=== PATIENT | male | born 1980 | race Native Hawaiian/Other Pacific Islander ===

== ENCOUNTER 2020-04-09 07:31 | Outpatient (CLI) | payer OTHER ==
--- NOTE | 2020-04-09 16:49 | MRI Report ---
PROCEDURE: Ankle LT W/O INDICATIONS: LEFT ANKLE PAIN TECHNIQUE: Noncontrast sagittal T1 spin echo and T2 fast spin echo with fat saturation, axial proton density fas t spin echo and T2 fast spin echo with fat saturation, coronal T1 spin echo and T2 fast spin echo wit h fat saturation through the ankle/hindfoot. COMPARISON: None. FINDINGS: Image quality: Excellent. Bones and joints: No bone marrow contusions or fractures. No hindfoot coalitions. No osteochondral injuries of the talar dome. No pathologic joint effusions. Medial structures: The posterior tibialis, flexor digitorum longus, and flexor hallucis longus tendo ns are intact. The posterior tibial neurovascular bundle appears normal within the tarsal tunnel, wi thout extrinsic mass effect. The deep layer (anterior and posterior tibiotalar ligaments) and superf icial layer (tibionavicular, tibiospring, and tibiocalcaneal ligaments) of the deltoid ligament appea r normal. The spring ligament components (superomedial calcaneonavicular, medioplantar oblique calca neonavicular, and inferoplantar longitudinal ligaments) are intact. Lateral structures: The anterior talofibular, calcaneofibular, and posterior talofibular ligaments a ppear intact. More superiorly, the anterior and posterior tibiofibular ligaments appear normal, as i s the intermalleolar ligament. The tibiofibular syndesmosis is normal in width at 2 mm or less. The peroneus longus and brevis tendons demonstrate normal location and morphology. Adjacent bony perone al tubercle and retrotrochlear prominence are normal in size. The sinus tarsi demonstrates normal fa tty signal, without edema, fibrosis, or cyst formation. Visualized sinus tarsi components (cervical ligament, interosseous talocalcaneal ligament, roots of the inferior extensor retinaculum) appear nor mal. Anterior structures: The tibialis anterior, extensor hallucis longus, and extensor digitorum longus tendons appear intact. Posterior and plantar structures: There is full-thickness rupture involving Achilles tendon approxima tely 7.9 cm from its insertion of posterior calcaneus with retraction of torn tendon fibers and up to 4 cm fluid-filled gap between 2 ends of the torn tendon fibers. Medial and lateral bands of the plan tar fascia are of normal thickness. No abductor digiti quinti muscle atrophy to suggest Ledezma neuro jean. IMPRESSION: 1. Full-thickness rupture involving Achilles tendon approximately 7.9 cm from its insertion on gold beater ior calcaneus with retraction of torn tendon fibers and up to 4 mm fluid-filled gap at the site of ru pture. 2. Extensor, flexor, and peroneus tendons are intact. 3. Medial and lateral ankle ligaments are intact. 4. No marrow edema. No fracture or dislocation. Reviewed by: Dayen Lynn MD on 04/09/2020 4:48 PM PST Approved by: Dayne Lynn MD on 04/09/2020 4:48 PM PST Station ID: [id number]
== END 2020-04-09 07:32 | disposition home or self-care (01) ==
LOC: DI 07:31
PROVIDERS: ATTEND Physician Assistant
DX: S86.012A Strain of left Achilles tendon, initial encounter (principal)

== ENCOUNTER 2021-03-06 11:26 | Emergency (ER) | payer OTHER ==
[2021-03-06] MEDS ORDERED: KETOROLAC 60 MG/2 ML VIAL IM STA (12:03)
[2021-03-06] MEDS ORDERED: DEXAMETHASONE 10 MG/ML VIAL PO STA (12:03)
[2021-03-06] MEDS ORDERED: CHERRY SYRUP 10 ML UDC PO ONE (12:03)
--- NOTE | 2021-03-06 12:30 | ED Physician Documentation ---
PD HPI BACK PAIN - Stated complaint Stated Complaint: BACK PX - Chief complaint Chief Complaint: Back Pain - History obtained from History obtained from: Patient - History of Present Illness Timing - onset: How many days ago (3) Timing - duration: Days (3) Timing - details: Gradual onset, Still present Location: Lower, Right Quality: Pain, Spasm, Sharp, Similar to prior episodes Associated symptoms: No: Fever, Weakness, Numbness, Incontinent of urine, Unable to urinate, Hematuria, Incontinent of stool Improves with: Rest Worsened by: Movement Contributing factors: Other (hiking several days prior to onset) Similar symptoms before: No diagnosis Recently seen: Not recently seen - Additional information Additional information: 40 y/o male with acute low back pain to the right lower paraspinous muscles. Believes loading injury may be related to some hiking done last week. has been using heat with relief but worsening pain. Review of Systems Constitutional: denies: Fever Nose: denies: Congestion Throat: denies: Sore throat Respiratory: denies: Cough GI: denies: Abdominal Pain, Vomiting, Constipation, Diarrhea : denies: Dysuria, Frequency Skin: denies: Rash Musculoskeletal: reports: Back pain. denies: Neck pain, Extremity pain Neurologic: denies: Generalized weakness, Focal weakness, Numbness PD PAST MEDICAL HISTORY - Past Medical History Other Past Medical History: left achilles fx 6 months ago - Past Surgical History Past Surgical History: No - Present Medications Home Medications: Ambulatory Orders Medication Instructions Recorded Confirmed Cyclobenzaprine [Flexeril] 10 mg PO TID PRN #20 tablet 03/06/21 HYDROcod/ACETAM 5/325 [[place] 5/325] 1 - 2 tablet PO Q6H PRN #14 tablet 03/06/21 - Allergies Allergies/Adverse Reactions: Allergies Allergy/AdvReac Type Severity Reaction Status Date / Time No Known Drug Allergies Allergy Verified 03/06/21 11:34 - Social History Does the pt smoke?: Yes Smoking Status: Current every day smoker Does the pt drink ETOH?: Yes ETOH Use: Beer Does the pt have substance abuse?: Yes Substance Use and Type: Marijuana PD ED PE NORMAL - Vitals Vital signs reviewed: Yes (tachy and hypertensive) - General General: Alert and oriented X 3, Well developed/nourished, Other (on all 4's on the bed stretching the lower back. ) - HEENT HEENT: Atraumatic, PERRL, EOMI - Respiratory Respiratory: No respiratory distress - Back Back: No CVA TTP, No spinal TTP, Other (paraspinous muscle tenderness to the lower lumbar paraspinous muscles on the right side. ) - Derm Derm: Normal color, Warm and dry, No rash - Extremities Extremities: No deformity, No edema - Neuro Neuro: Alert and oriented X 3, copyist 2-12 intact, No motor deficit, No sensory deficit, Normal speech Eye Opening: Spontaneous Motor: Obeys Commands Verbal: Oriented GCS Score: 15 - Psych Psych: Normal mood, Normal affect Results - Vitals Vitals: Vital Signs - 24 hr 03/06/21 03/06/21 11:30 13:01 Temperature 36.3 C L 37.4 C Heart Rate 103 H 81 Respiratory 16 12 Rate Blood Pressure 136/76 H 107/84 H O2 Saturation 98 95 Oxygen O2 Source Room air PD MEDICAL DECISION MAKING - ED course Complexity details: considered differential, d/w patient ED course: 40-year-old male with acute lumbar paraspinous muscle spasm has been using a heating pack and has worsening symptoms. He is administered dexamethasone and Toradol with improvement of his patient use ice and stretch. Departure - Departure Disposition: 01 Home, Self Care Clinical Impression: Acute lumbar myofascial strain Qualifiers: Encounter type: initial encounter Qualified Code(s): S39.012A - Strain of muscle, fascia and tendon of lower back, initial encounter Condition: Stable Instructions: ED Sprain Strain Lumbar Follow-Up: [facility] [Provider Group] Prescriptions: Cyclobenzaprine [Flexeril] 10 mg PO TID PRN #20 tablet PRN Reason: Spasms HYDROcod/ACETAM 5/325 [[place] 5/325] 1 - 2 tablet PO Q6H PRN #14 tablet PRN Reason: Pain Comments: Ayden, today it looks like you have a myofascial injury to your lower back. This can take more than a week to heal up. The recommendation is to use ice and stretch and ibuprofen or Aleve for pain control. For pain not relieved by these measures we have prescribed some hydrocodone which is a controlled substance. Do not able to drive or operate machinery after taking it and it will make you constipated. This has been E scribed to [facility] in [place]. There is a muscle relaxant prescribed as well which should make it easier for you to not move around when you sleep at night. Forms: Activity restrictions Discharge Date/Time: 03/06/21 13:06
[2021-03-06 13:02] VITALS: BP 107/84
== END 2021-03-06 13:06 | disposition home or self-care (01) ==
LOC: ED 11:26
DX: S39.012A Strain of muscle, fascia and tendon of lower back, initial encounter (principal); Y93.01 Activity, walking, marching and hiking
CPT/HCPCS: 96372; 99282; 99283; A9270